=== PATIENT | female | born 1995 | race Caucasian/White ===

== ENCOUNTER → 2017-11-22 | Outpatient (CLI) | payer BC, OTHER ==
[~2017-11-22] MED LIST: BCPILLS PO; CYM/30 PO; LEVO75TA PO
--- NOTE | 2017-11-22 12:19 | DIAGNOSTIC IMAGING REPORT ---
L KNEE 4 OR MORE CLINICAL HISTORY: LEFT KNEE PAIN COMPARISON: None. DISCUSSION: No fractures or dislocations are visualized. There are no erosive or destructive changes. There is no conventional radiographic evidence of a significant joint effusion. IMPRESSION: Unremarkable conventional radiographic evaluation of the left knee Electronically signed by: Nahun Garcia M.D. 11/22/2017 12:18 PM Dictated Date/Time: 11/22/2017 12:17 PM
== END | disposition home or self-care (01) ==
LOC: C.RDSM 19:21
PROVIDERS: ATTEND Internal Medicine
DX: M25.562 Pain in left knee (principal)

== ENCOUNTER → 2017-12-25 | Outpatient (CLI) | payer BC, OTHER ==
--- NOTE | 2017-12-25 13:44 | DIAGNOSTIC IMAGING REPORT ---
R FOOT MIN 3 VIEWS CLINICAL HISTORY: RIGHT FOOT PAIN COMPARISON: None. DISCUSSION: The bony mineralization appears normal. No fractures or dislocations are visualized. There is no evidence of erosive disease. Perioperative degenerative changes are suspected the level the first tarsal metatarsal joint. IMPRESSION: 1. No acute fractures 2. No evidence of erosive disease 3. Very minor degenerative changes at the level the first tarsal metatarsal joint Electronically signed by: Nahun Garcia M.D. 12/25/2017 1:42 PM Dictated Date/Time: 12/25/2017 1:41 PM
== END | disposition home or self-care (01) ==
LOC: C.RDSM 13:58
PROVIDERS: ATTEND Internal Medicine
DX: M79.671 Pain in right foot (principal)